=== PATIENT | male | born 1990 ===

== ENCOUNTER → 2016-07-06 | Day surgery (SDC) | payer BC ==
[~2016-07-06] MED LIST: BUPIVACAINE/EPINEPHRINE 0.25% 50 ML VIAL ONE; BUPIVACAINE/EPINEPHRINE 0.5% 50 ML VIAL ONE; KETOROLAC TROMETHAMINE 30 MG/ML (IVP) VIAL IV PUSH ONE; LACTATED RINGER'S 1000 ML INJ 1,000 ML ONE; MIDAZOLAM HCL 2 MG/2 ML VIAL ONE; ONDANSETRON HCL 4 MG/2 ML VIAL IV PUSH ONE; PROPOFOL 500 MG/50 ML BTL IV ONE; ceFAZolin 2 GM PREMIX 50 ML ONE
--- NOTE | 2016-07-06 11:40 | TN ---
cc: SANJIV MCQUEEN M.D. DATE OF SURGERY: 07/06/2016 PREOPERATIVE DIAGNOSIS 3 cm subcutaneous mass right buttock, probable large sebaceous cyst. POSTOPERATIVE DIAGNOSIS 1. 3 cm subcutaneous mass right buttock, probably large sebaceous cyst. 2. Large sebaceous cyst. PROCEDURE PERFORMED Wide local excision 3 cm subcutaneous mass, right buttock. SURGEON Sanjiv Mcqueen MD ANESTHESIA TIVA with local. COMPLICATIONS None. POSITIONING Left lateral via carpio bag. INDICATION FOR PROCEDURE Fam is a pleasant 25-year-old young man who has a large symptomatic mass on his right buttock. He reports this is a area that he has had for several years. He has tried to squeeze it several times but it has gotten larger and only drained minimal amounts. He was seen and evaluated in the office and found to have a fairly large what appeared to be sebaceous cyst. I offered him a wide local excision in the operating room due to its large size and location. The patient was agreeable and signed consents. DETAILS OF PROCEDURE The patient was identified, brought to the operating room and placed supine on the operating table. He was then allowed to turn into the left lateral decubitus position. A carpio bag was then placed around him and he was secured. He was then lightly sedated. The right buttock was then prepped and draped in standard surgical fashion. 0.25% Marcaine was injected in the skin and subcutaneous tissue around the mass. An elliptical skin incision was used to excise the overlying skin from the mass which also had a small sinus tract in it. The subcutaneous fat was then dissected with sharp dissection with care not to violate the capsule of the mass. Mass was excised in toto without violating the capsule or spilling any of its contents. It was sent to pathology for analysis. Wound was then copiously irrigated with normal saline solution. Bleeding points were controlled with electrocautery Bovie. Wound was then closed in two layers using a 3-0 and 4-0 Vicryl. Sterile dressings were applied and the patient was awakened, returned to the supine position and brought to the recovery room in stable condition. MD OTILIA Day/FEMIL /11:24 AM /11:29 AM
== END | disposition home or self-care (01) ==
LOC: ESDC 08:40
PROVIDERS: ATTEND Surgery Trauma Surgery
DX: L72.0 Epidermal cyst (principal)
CPT/HCPCS: 00300; 11403; 88304; J0690; J1885; J2250; J2405; J3010; J7120